=== PATIENT | female | born 1950 | race Caucasian/White ===

== ENCOUNTER 2020-11-04 05:35 | Day surgery (SDC) | payer MEDICARE ==
[~2020-11-04] VITALS: Ht 167.6 cm; Wt 77.1 kg
[~2020-11-04 05:35] MED LIST: CALCIUM 600 +1 EAC3 PO; CENTRUM SILVER1 EAC3 PO; LISINOPRIL30 MG PO; TIROSINT100 MCG PO; ZYRTEC10 MG PO
[2020-11-04 06:00] LABS: BASOPHILS 0.3 % (0-2); EOSINOPHILS 0 % (0-7); HEMATOCRIT 42.5 % (36.0-48.0); HEMOGLOBIN 14.1 g/dL (12-16); LYMPHOCYTES 41.4 % (15-50); MCH 32.6 pg (26.0-34.0); MCHC 33.3 g/dL (31.0-37.0); MEAN PLATELET VOLUME 6.9 fL (7.4-10.4); MONOCYTES 9.2 % (2-11); NEUTROPHILS 49.1 % (40-80); PLATELET COUNT 213 10x3/uL (130-400); RBC 4.34 10x6/uL (4.00-5.40); RDW 13.5 % (11.5-14.5); WBC 5.5 10x3/uL (4.8-10.8)
[2020-11-04 06:15] LABS: CALC OSMOLALITY 283 mosm/kg (275-300); CALCIUM 8.7 mg/dL (8.5-10.1); CHLORIDE - SERUM 106 mmol/L (98-107); CREATININE - SERUM 0.7 mg/dL (0.6-1.3); GLUCOSE 106 mg/dL (74-106); POTASSIUM - SERUM 3.9 mmol/L (3.5-5.1); SODIUM 141 mmol/L (136-145); UREA NITROGEN 22 mg/dL (7-18); eGFR NON AFRICAN AMERICAN 88 mL/min (90-120)
[2020-11-04 07:15] VITALS: BP 170/80; Ht 167.6 cm; Wt 77.1 kg
[2020-11-04] MEDS ORDERED: TYLENOL W/CODEI1 TAB PO (08:48)
[2020-11-04] MEDS ORDERED: BACTRIM DS TAB1 EAC1 PO (08:49)
== END 2020-11-04 09:40 | disposition home or self-care (01) ==
LOC: D.OPS 05:35
PROVIDERS: Anesthesiology; ATTEND Surgery
DX: I80.202 Phlebitis and thrombophlebitis of unspecified deep vessels of left lower extremity (principal); I83.92 Asymptomatic varicose veins of left lower extremity